=== PATIENT | male | born 1985 | race Caucasian/White ===

== ENCOUNTER 2018-08-05 11:59 | Emergency (ER) | payer SELFPAY ==
--- NOTE | 2018-08-05 12:17 | EDM.PDOC ---
ED HPI GENERAL MEDICAL PROBLEM - General Chief Complaint: Head Injury Stated Complaint: HEAD INJURY Time Seen by Provider: 08/05/18 12:13 Source of Information: Reports: Patient History Limitations: Reports: No Limitations - History of Present Illness INITIAL COMMENTS - FREE TEXT/NARRATIVE: Was struck in head by piece of steel today @0930 while working on a car. Complains of headache, intermittent blurred vision and lightheadedness. Denies LOC or N/V. Patient believes last tetanus booster may have been 2 years ago when toe was amputated. Onset: Today Onset Date: 08/05/18 Onset Time: 09:30 Location: Reports: Head Quality: Reports: Ache Severity: Moderate - Related Data Allergies Allergy/AdvReac Type Severity Reaction Status Date / Time No Known Allergies Allergy Verified 08/05/18 12:22 Home Meds: Home Meds NK [No Known Home Meds] 11/25/16 [History] Past Medical History Other Gastrointestinal History: RECTAL BLEEDING, SPLEENECTOMY 2008 Other Musculoskeletal History: FX 5TH FINGERS BOTH HANDS. STATES BROKE FINGERS , CAST PLACED ET STATES REMOVED CASTS SAME DAY THEY WERE PLACED. Other Psychiatric History: PT DENIES HAVING BEEN DIAGNOSED WITH ANY DEPENDANCY OR OTHER PSHCHIATRIC ISSUES. Immunologic History: Reports: None Social & Family History - Caffeine Use Caffeine Use: Reports: Energy Drinks ED ROS GENERAL - Review of Systems Review Of Systems: ROS reveals no pertinent complaints other than HPI. ED EXAM, HEAD INJURY - Physical Exam Exam: See Below Exam Limited By: No Limitations General Appearance: Alert, WD/WN, No Apparent Distress Head: Scalp Abrasions (linear frontal scalp abrasion) Eyes: Bilateral Eye: EOMI, PERRL Ears: Normal External Exam Nose: Normal Inspection Throat/Mouth: No Airway Compromise Neck: Non-Tender, Full Range of Motion Respiratory: No Respiratory Distress Back Exam: Full Range of Motion Extremities: Normal Range of Motion Neurologic: No Motor/Sensory Deficits, Alert, Normal Mood/Affect, Oriented x 3 Course - Vital Signs Last Recorded V/S: Last Vital Signs Temp 36.9 C 08/05/18 12:15 Pulse 70 08/05/18 12:15 Resp 16 08/05/18 12:15 BP 131/71 08/05/18 12:15 Pulse Ox 96 08/05/18 12:15 - Orders/Labs/Meds Orders: Active Orders 24 hr Category Date Time Status Head wo Cont [CT] Stat Exams 08/05/18 12:10 Taken - Radiology Interpretation Free Text/Narrative:: Head CT: NAD - Re-Assessments/Exams Free Text/Narrative Re-Assessment/Exam: 08/05/18 12:42 Wound cleansed, bacitracin applied Departure - Departure Time of Disposition: 12:42 Disposition: Home, Self-Care 01 Condition: Good Clinical Impression: Concussion injury of brain, Abrasion, scalp w/o infection - Discharge Information *PRESCRIPTION DRUG MONITORING PROGRAM REVIEWED*: No *COPY OF PRESCRIPTION DRUG MONITORING REPORT IN PATIENT ZAK: Not Applicable Referrals: PCP,None [Primary Care Provider] - Forms: ED Department Discharge Additional Instructions: Apply Bacitracin ointment daily. Rest. Fluids. Take Tylenol as needed for pain. Return to the ER if symptoms worsen. - My Orders Last 24 Hours: My Active Orders 08/05/18 12:10 Head wo Cont [CT] Stat - Assessment/Plan Last 24 Hours: My Active Orders 08/05/18 12:10 Head wo Cont [CT] Stat
[2018-08-05] MEDS ORDERED: Bacitracin Oint 1 GM U/D Packet TOP ONE (12:41)
[2018-08-05] MEDS ORDERED: Acetaminophen 325 MG Tab PO ONE (12:44)
[2018-08-06 00:10] VITALS: BP 136/69
== END 2018-08-05 13:00 | disposition home or self-care (01) ==
LOC: FB.ED 11:59
DX: S06.9X0A Unspecified intracranial injury without loss of consciousness, initial encounter (principal); S00.01XA Abrasion of scalp, initial encounter; W22.8XXA Striking against or struck by other objects, initial encounter
CPT/HCPCS: 70450; 99283; A9270

== ENCOUNTER 2019-08-23 17:11 | Emergency (ER) | payer SELFPAY ==
[2019-08-23] MEDS ORDERED: Lidocaine 2% 20 ML MDV INFILT ONE (17:12)
[2019-08-23] MEDS ORDERED: Clindamycin HCl 150 MG Cap PO ONE (18:36)
[2019-08-23] MEDS ORDERED: Sulfamethoxazole/Trimethoprim 800-160 MG Tab PO ONE (18:36)
--- NOTE | 2019-08-23 18:38 | EDM.PDOC ---
ED HPI GENERAL MEDICAL PROBLEM - General Chief Complaint: Skin Complaint Stated Complaint: BOIL Time Seen by Provider: 08/23/19 17:35 Source of Information: Reports: Patient - History of Present Illness INITIAL COMMENTS - FREE TEXT/NARRATIVE: Patient is a 34 YO WM who presented to the ED because of redness,pain swelling on the right buttock. He thinks there is also an abscess although it's not draining. There is no associated fever or chills, but there is significant pain. - Related Data Allergies Allergy/AdvReac Type Severity Reaction Status Date / Time No Known Allergies Allergy Verified 08/05/18 12:22 Home Meds: Home Meds Clindamycin HCl 300 mg PO QID #80 capsule 08/23/19 [Rx] Ibuprofen 800 mg PO TID PRN #30 tablet 08/23/19 [Rx] Sulfamethoxazole/Trimethoprim [Bactrim Ds Tablet] 1 each PO BID #20 tablet 08/23 [Rx] Past Medical History Other Gastrointestinal History: RECTAL BLEEDING, SPLEENECTOMY 2008 Other Musculoskeletal History: FX 5TH FINGERS BOTH HANDS. STATES BROKE FINGERS , CAST PLACED ET STATES REMOVED CASTS SAME DAY THEY WERE PLACED. Other Psychiatric History: PT DENIES HAVING BEEN DIAGNOSED WITH ANY DEPENDANCY OR OTHER PSHCHIATRIC ISSUES. Immunologic History: Reports: None - Past Surgical History Musculoskeletal Surgical History: Reports: Amputation Other Musculoskeletal Surgeries/Procedures:: States right great toe amputation, due to injury. States left foot pinning. Social & Family History - Caffeine Use Caffeine Use: Reports: Energy Drinks ED ROS GENERAL - Review of Systems Review Of Systems: See Below Constitutional: Reports: No Symptoms HEENT: Reports: No Symptoms Respiratory: Reports: No Symptoms Cardiovascular: Reports: No Symptoms Endocrine: Reports: No Symptoms GI/Abdominal: Reports: No Symptoms : Reports: No Symptoms Musculoskeletal: Reports: No Symptoms Skin: Reports: Erythema, Change in Color Neurological: Reports: No Symptoms Psychiatric: Reports: No Symptoms ED EXAM, SKIN/RASH Exam: See Below Exam Limited By: No Limitations General Appearance: Alert, No Apparent Distress Ears: Normal External Exam, Normal Canal, Hearing Grossly Normal Nose: Normal Inspection, Normal Mucosa, No Blood Throat/Mouth: Normal Inspection, Normal Lips, Normal Teeth, Normal Gums Head: Atraumatic, Normocephalic Neck: Normal Inspection, Supple, Non-Tender, Full Range of Motion Respiratory/Chest: No Respiratory Distress, Lungs Clear, Normal Breath Sounds, No Accessory Muscle Use, Chest Non-Tender Cardiovascular: Normal Peripheral Pulses, Regular Rate, Rhythm, No Edema, No Gallop, No JVD, No Murmur, No Rub GI/Abdominal: Normal Bowel Sounds, Soft, Non-Tender (Male) Exam: No Hernia, Normal Inspection, Normal Prostate Rectal (Males) Exam: Normal Exam, Normal Rectal Tone, Prostate Normal Back Exam: Normal Inspection, Full Range of Motion Extremities: Normal Inspection, Normal Range of Motion Neurological: Alert, Oriented Psychiatric: Normal Affect, Normal Mood Skin: Dry, No Rash, Other (golf ball size erythema, on right buttock with fluctuant mass.) Location, Skin: Head, Face Characteristics: Macular ED SKIN PROCEDURES - I&D Site: right buttock Skin Prep: Providone-Iodine (Betadine) Local Anesthesia: Lidocaine: 2% Plain Local Anesthetic Volume: 5cc Area Incised With: 15 Blade Drainage: Purulent, Bloody, Moderate Amount Probed to Break Up Loculations: No Sterile Dressing: Other (non adhesive dressive dressing) Complication Description: None Course - Vital Signs Last Recorded V/S: Last Vital Signs Temp 36.5 C 08/23/19 18:50 Pulse 67 08/23/19 18:50 Resp 17 08/23/19 18:50 BP 142/84 H 08/23/19 18:50 Pulse Ox 98 08/23/19 18:50 - Orders/Labs/Meds Orders: Active Orders 24 hr Category Date Time Status CULTURE ANAEROBIC + SMEAR [RM] Stat Lab 08/23/19 18:28 Received CULTURE ROUTINE + SMEAR [RM] Stat Lab 08/23/19 18:28 Results Meds: Medications Discontinued Medications Generic Name Dose Route Start Last Admin Trade Name Lazaroq PRN Reason Stop Dose Admin Clindamycin HCl 600 mg 08/23/19 18:36 08/23/19 18:41 Cleocin PO 08/23/19 18:37 600 mg ONETIME ONE Administration Lidocaine HCl 5 ml 08/23/19 17:38 Xylocaine-Mpf 1% INJECT 08/23/19 17:39 ONETIME ONE Trimethoprim/Sulfamethoxazole 1 tab 08/23/19 18:36 08/23/19 18:41 Septra Ds PO 08/23/19 18:37 1 tab ONETIME ONE Administration Departure - Departure Time of Disposition: 18:40 Disposition: Home, Self-Care 01 Condition: Good Clinical Impression: Cellulitis and abscess of buttock - Discharge Information *PRESCRIPTION DRUG MONITORING PROGRAM REVIEWED*: No *COPY OF PRESCRIPTION DRUG MONITORING REPORT IN PATIENT ZAK: No Prescriptions: Clindamycin HCl 300 mg PO QID #80 capsule Ibuprofen 800 mg PO TID PRN #30 tablet PRN Reason: Pain Sulfamethoxazole/Trimethoprim [Bactrim Ds Tablet] 1 each PO BID #20 tablet Instructions: Cellulitis, Adult, [id number] Referrals: PCP,None [Primary Care Provider] - Forms: ED Department Discharge Additional Instructions: please read discharge on cellulitis and abscess(skin infection) Take Bactrim DS 1 tablet twice daily for 10 days Clindamycin 300 mg 4 times daily for 10 days ibuprofen 800 mg with [id number] mg every 8 hours as needed for pain Follow up wound culture result after 72 hours. - My Orders Last 24 Hours: My Active Orders 08/23/19 18:28 CULTURE ANAEROBIC + SMEAR [RM] Stat CULTURE ROUTINE + SMEAR [RM] Stat - Assessment/Plan Last 24 Hours: My Active Orders 08/23/19 18:28 CULTURE ANAEROBIC + SMEAR [RM] Stat CULTURE ROUTINE + SMEAR [RM] Stat
[2019-08-23 19:12] VITALS: BP 142/84; PULSE 67
== END 2019-08-23 18:53 | disposition home or self-care (01) ==
LOC: FB.ED 17:11
DX: L02.31 Cutaneous abscess of buttock (principal); L03.317 Cellulitis of buttock
CPT/HCPCS: 10060; 87070; 87075; 87205; 99283; A9270-GY; J2001